=== PATIENT | female | born 1955 | race Caucasian/White ===

== ENCOUNTER → 2017-09-09 | Outpatient (CLI) | payer BC ==
[~2017-09-09] MED LIST: ACT35 PO; AMT10 PO; CEPH500C PO; CONJ.6255
--- NOTE | 2017-09-10 14:10 | MAMMOGRAPHY REPORT ---
BILATERAL DIGITAL SCREENING MAMMOGRAM TOMOSYNTHESIS WITH CAD: 09/09/2017 CLINICAL HISTORY: Routine screening. TECHNIQUE: Breast tomosynthesis in addition to standard 2D mammography was performed. Current study was also evaluated with a Computer Aided Detection (CAD) system. COMPARISON: Comparison is made to exams dated: 08/30/2016 mammogram, 09/04/2015 mammogram, 08/08/2014 mammogram, 06/03/2013 mammogram - [facility], 03/13/2012 mammogram, and 03/22/2011 [facility]. BREAST COMPOSITION: The tissue of both breasts is almost entirely fatty. FINDINGS: No suspicious mass, architectural distortion or cluster of microcalcifications is seen. IMPRESSION: ACR BI-RADS CATEGORY 1: NEGATIVE There is no mammographic evidence of malignancy. A 1 year screening mammogram is recommended. The pa tient will receive written notification of the results. Approximately 10% of breast cancers are not detected with mammography. A negative mammographic report should not delay biopsy if a clinically suggestive mass is present. Sally pardo/penloraine:09/09/2017 14:53:12 Pack Master: Claribel Villegas RT(R)(M), [facility] letter sent: Normal 1/2 BI-RADS Code: ACR BI-RADS Category 1: Negative
== END | disposition home or self-care (01) ==
LOC: C.MAMM 10:50
PROVIDERS: ATTEND Internal Medicine
DX: Z12.31 Encounter for screening mammogram for malignant neoplasm of breast (principal)

== ENCOUNTER → 2017-11-13 | Outpatient (CLI) | payer OTHER | END | disposition home or self-care (01) | LOC: C.PAPS 08:28 | PROVIDERS: ATTEND Nurse Practitioner Adult Health | DX: Z12.4 Encounter for screening for malignant neoplasm of cervix (principal) ==

== ENCOUNTER → 2017-12-08 | Outpatient (CLI) | payer OTHER | END | disposition home or self-care (01) | LOC: C.MAMM 07:56 | PROVIDERS: ATTEND Nurse Practitioner Adult Health | DX: M85.89 Other specified disorders of bone density and structure, multiple sites (principal) ==

== ENCOUNTER → 2018-04-23 | Outpatient (CLI) | payer OTHER ==
--- NOTE | 2018-04-23 13:08 | DIAGNOSTIC IMAGING REPORT ---
L SHOULDER MIN 2 VIEWS ROUTINE CLINICAL HISTORY: LEFT SHOULDER PAIN pain COMPARISON: None. DISCUSSION: Mild degenerative change glenohumeral and acromioclavicular joints. Minimal calcific supraspinatus tendinitis. No evidence for fracture or dislocation. Bone mineralization is osteopenic. There is no evidence for soft tissue swelling. IMPRESSION: 1. Mild supraspinatus calcific tendinitis. 2. 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 The above report was generated using voice recognition software. It may contain grammatical, syntax or spelling errors. Electronically signed by: Edilberto Oswald M.D. 04/23/2018 1:07 PM Dictated Date/Time: 04/23/2018 1:06 PM
== END | disposition home or self-care (01) ==
LOC: C.RADBC 12:00
PROVIDERS: ATTEND Physician Assistant Medical
DX: M75.32 Calcific tendinitis of left shoulder (principal)